=== PATIENT | male | born 1955 | race African-American/Black ===

== ENCOUNTER 2018-07-16 10:02 | Inpatient (IN) | payer MEDICARE, BC ==
[~2018-07-16] VITALS: Ht 182.9 cm; Wt 49.9 kg
[~2018-07-16 10:02] MED LIST: AMLO10TA80 PO; ASPI81TA47 PO; CELL2 PO; CLOP75TA16 PO; CYCL100C PO; CYCL100S4 PO; LABE100T5 PO; LEVE1000 PO; LEVE500T78 PO; PARI1CAP PO; PRAV20TA57 PO; PRED5TAB PO; SODI650T PO; VITA400T9 PO
[2018-07-16 12:21] LABS: HEMATOCRIT. 28.3 % (42.0-52.0); HEMOGLOBIN. 9.3 g/dL (14.0-18.0); MEAN CORPUSCULAR HEMOGLOBIN 30.1 pg (28.0-32.0); MEAN CORPUSCULAR VOLUME 91.3 fL (80.0-94.0); PLATELET 305 x1000/uL (130-400); RED CELL DISTRIBUTION WIDTH 16.7 % (11.6-14.6)
[2018-07-16 12:28] LABS: CHLORIDE 104 mEq/L (98-107)
[2018-07-16 12:35] LABS: ETHANOL BLOOD < 10 mg/dL
[2018-07-16 12:41] LABS: INR 1.1; PROTHROMBIN TIME 10.7 sec (9.1-11.1)
[2018-07-16] MEDS ORDERED: SODIUM CHLORIDE 0.9% 500 ML IV ONE (12:45)
[2018-07-16 13:10] LABS: PLATELET ESTIMATE NORMAL
[2018-07-16] MEDS ORDERED: ACETAMINOPHEN 325MG TABLET PO PRN (14:45)
[2018-07-16] MEDS ORDERED: MAGNESIUM/ALUMINUM HYDROXIDE/SIMETHICONE 30ML UDC PO PRN (14:45)
[2018-07-16] MEDS ORDERED: ACETAMINOPHEN 650MG/20.3ML UDC GT PRN (14:45)
[2018-07-16] MEDS ORDERED: DIPHENHYDRAMINE 50MG/ML VIAL IV PRN (14:45)
[2018-07-16] MEDS ORDERED: NA PHOS,M-B/NA PHOS,DI-BA ENEMA 118ML PR PRN (14:45)
[2018-07-16] MEDS ORDERED: CLONIDINE 0.1MG TABLET PO PRN (14:45)
[2018-07-16] MEDS ORDERED: ONDANSETRON HCL 4MG/2ML INJ IV PRN (14:45)
[2018-07-16] MEDS ORDERED: ACETAMINOPHEN 650MG SUPP PR PRN (14:45)
[2018-07-16] MEDS ORDERED: IPRATROPIUM/ALBUTEROL 0.5-3(2.5)MG/3ML NEB INH PRN (14:45)
[2018-07-16] MEDS: PANTOPRAZOLE SODIUM 40 MG/VIAL IV SCH (15:40)
[2018-07-16 18:43] LABS: CLARITY URINE CLEAR (CLEAR); COLOR URINE YELLOW (YELLOW); KETONES URINE NEGATIVE (NEGATIVE); LEUKOCYTE ESTERASE URINE NEGATIVE (NEGATIVE); NITRITE URINE NEGATIVE (NEGATIVE); OCCULT BLOOD URINE NEGATIVE (NEGATIVE); PH URINE >=9.0 (4.5-8.0); PROTEIN URINE 2+ (NEGATIVE); SPECIFIC GRAVITY URINE 1.011 (1.005-1.030); UROBILINOGEN URINE 0.2 E.U./dL (0.2-1.0)
[2018-07-16 19:32] LABS: *AMPHETAMINES SCREEN URINE NEGATIVE (NEGATIVE); *BARBITURATES SCREEN URINE NEGATIVE (NEGATIVE)
[2018-07-16 19:33] LABS: *BENZODIAZEPINES SCREEN URINE NEGATIVE (NEGATIVE); *COCAINE SCREEN URINE NEGATIVE (NEGATIVE); CANNABINOID URINE SCREEN NEGATIVE (NEGATIVE); METHADONE URINE SCREEN NEGATIVE (NEGATIVE); OPIATES URINE SCREEN NEGATIVE (NEGATIVE); PHENCYCLIDINE URINE SCREEN NEGATIVE (NEGATIVE)
[2018-07-16 20:01] LABS: HEMATOCRIT 25.2 % (42.0-52.0); HEMOGLOBIN 8.1 g/dL (14.0-18.0); MEAN CORPUSCULAR HEMOGLOBIN 30.1 pg (28.0-32.0); PLATELET 249 x1000/uL (130-400); RED CELL DISTRIBUTION WIDTH 16.7 % (11.6-14.6)
[2018-07-16] MEDS: MYCOPHENOLATE MOFETIL 250MG CAPSULE PO SCH (21:02)
[2018-07-16] MEDS: PARICALCITOL 1 MCG CAPSULE PO SCH (21:02)
[2018-07-16] MEDS: PREDNISONE 5MG TABLET PO SCH (21:02)
[2018-07-16] MEDS ORDERED: HYDROCODONE/ACETAMINOPHEN 5/325MG TABLET PO PRN (21:45)
[2018-07-16] MEDS ORDERED: SODIUM CHLORIDE 0.9% INJ 3ML FLUSH IVF SCH (22:00)
[2018-07-16] MEDS ORDERED: CYCLOSPORINE, MODIFIED 100MG CAPSULE PO NR (22:15)
[2018-07-16] MEDS ORDERED: CYCLOSPORINE, MODIFIED 25MG CAPSULE PO NR (22:15)
[2018-07-17 06:33] LABS: BASOPHILS % 0.8 % (0.0-2.0); EOSINOPHILS % 2.5 % (0.0-5.0); LYMPHOCYTES % 10.6 % (20.0-50.0); MEAN CORPUSCULAR HEMOGLOBIN 30.2 pg (28.0-32.0); MEAN CORPUSCULAR VOLUME 90.1 fL (80.0-94.0); MEAN PLATELET VOLUME 7.4 fl (7.4-10.4); MONOCYTES % 12.8 % (2.0-8.0); NEUTROPHILS % 73.3 % (40.0-76.0); PLATELET 255 x1000/uL (130-400); RED BLOOD CELL COUNT 2.11 mill/uL (4.7-6.1); RED CELL DISTRIBUTION WIDTH 16.5 % (11.6-14.6)
[2018-07-17 06:43] LABS: CHLORIDE 103 mEq/L (98-107)
[2018-07-17 06:47] LABS: HEMOGLOBIN. 6.4 g/dL (14.0-18.0)
[2018-07-17 07:24] LABS: HDL CHOLESTEROL 39 mg/dL (40-59); LDL CHOLESTEROL 48 mg/dL (5-100)
[2018-07-17] MEDS ORDERED: DEXTROSE 50% WATER 50ML SYRINGE IV ONE ×2 (07:30→12:00)
[2018-07-17] MEDS ORDERED: INSULIN REGULAR (HUMULIN R) 300UNITS/3ML IV ONE ×2 (07:30→12:00)
[2018-07-17] MEDS ORDERED: SODIUM BICARBONATE 8.4% 1 MEQ/ML 50ML SYR IV ONE ×3 (07:30→12:16)
[2018-07-17] MEDS ORDERED: CALCIUM CHLORIDE 1,000 MG in DEXT 5% WATER 100 ML IV ONE (07:30)
[2018-07-17] MEDS: PANTOPRAZOLE SODIUM 40 MG/VIAL IV SCH (09:00)
[2018-07-17] MEDS: MYCOPHENOLATE MOFETIL 250MG CAPSULE PO SCH ×2 (09:00→17:47)
[2018-07-17] MEDS: PREDNISONE 5MG TABLET PO SCH (09:00)
[2018-07-17] MEDS: PARICALCITOL 1 MCG CAPSULE PO SCH (09:00)
[2018-07-17] MEDS ORDERED: SODIUM POLYSTYRENE SULFONATE 15 G/60 ML BOT PO NR (12:00)
[2018-07-17] MEDS ORDERED: CALCIUM CHLORIDE 1GM/10ML SYR IV ONE (12:19)
[2018-07-17 12:40] VITALS: BP 155/60
[2018-07-17] MEDS: SODIUM CHLORIDE 0.9% INJ 3ML FLUSH IVF SCH ×2 (14:29→21:15)
[2018-07-17 15:52] VITALS: BP 166/76
[2018-07-17] MEDS ORDERED: SORBITOL 70% SOLN 30ML PO NR ×2 (17:35→21:00)
[2018-07-17] MEDS: CYCLOSPORINE, MODIFIED 100MG CAPSULE PO SCH (17:47)
[2018-07-17] MEDS: CYCLOSPORINE, MODIFIED 25MG CAPSULE PO SCH (17:47)
[2018-07-17 19:50] VITALS: BP 158/66
[2018-07-17] MEDS ORDERED: SORBITOL 70% SOLN 30ML PO SCH (21:00)
[2018-07-17 23:40] VITALS: BP 150/64
[2018-07-18] VITALS (7 sets, daily range): BP systolic 141–176; BP diastolic 60–68
[2018-07-18] MEDS: SODIUM CHLORIDE 0.9% INJ 3ML FLUSH IVF SCH ×2 (06:23→14:00)
[2018-07-18 06:59] LABS: HEMOGLOBIN. 7.1 g/dL (14.0-18.0); MEAN CORPUSCULAR HEMOGLOBIN 29.9 pg (28.0-32.0); MEAN CORPUSCULAR VOLUME 88.7 fL (80.0-94.0); MEAN PLATELET VOLUME 7.9 fl (7.4-10.4); PLATELET 253 x1000/uL (130-400); RED BLOOD CELL COUNT 2.36 mill/uL (4.7-6.1); RED CELL DISTRIBUTION WIDTH 17.4 % (11.6-14.6)
[2018-07-18] MEDS: PANTOPRAZOLE SODIUM 40 MG/VIAL IV SCH (08:35)
[2018-07-18] MEDS: PREDNISONE 5MG TABLET PO SCH (08:35)
[2018-07-18] MEDS: MYCOPHENOLATE MOFETIL 250MG CAPSULE PO SCH ×2 (08:35→18:38)
[2018-07-18] MEDS: PARICALCITOL 1 MCG CAPSULE PO SCH (08:35)
[2018-07-18] MEDS ORDERED: CYCLOSPORINE, MODIFIED 100MG CAPSULE PO SCH (09:00)
[2018-07-18] MEDS ORDERED: CYCLOSPORINE, MODIFIED 25MG CAPSULE PO SCH (09:00)
[2018-07-18 10:36] LABS: PLATELET ESTIMATE NORMAL
[2018-07-18 11:21] LABS: T4 FREE 0.92 ng/dL (0.76-1.46)
[2018-07-18] MEDS ORDERED: SIMETHICONE 40 MG/0.6 ML 30ML ONE (14:56)
[2018-07-18] MEDS ORDERED: BACTERIOSTATIC SODIUM CHLORIDE 0.9% 30ML VIAL IJ ONE (14:59)
[2018-07-18] MEDS ORDERED: HYDRALAZINE 20MG/ML VIAL IV NR (17:10)
[2018-07-18] MEDS ORDERED: MIDAZOLAM HCL 5 MG/5 ML VIAL IV PRN (17:12)
[2018-07-18] MEDS ORDERED: MIDAZOLAM HCL 5 MG/5 ML VIAL ONE (17:14)
[2018-07-18] MEDS ORDERED: FENTANYL CITRATE/PF 50MCG/ML 2ML VIAL ONE (17:15)
[2018-07-18] MEDS ORDERED: HYDRALAZINE 20MG/ML VIAL ONE (17:17)
[2018-07-18 18:36] LABS: HEMATOCRIT 24.9 % (42.0-52.0); HEMOGLOBIN 8.5 g/dL (14.0-18.0); MEAN CORPUSCULAR HEMOGLOBIN 30.3 pg (28.0-32.0); MEAN CORPUSCULAR VOLUME 89.3 fL (80.0-94.0); PLATELET 264 x1000/uL (130-400); RED BLOOD CELL COUNT 2.79 mill/uL (4.7-6.1); RED CELL DISTRIBUTION WIDTH 16.7 % (11.6-14.6)
[2018-07-18] MEDS: CYCLOSPORINE, MODIFIED 100MG CAPSULE PO SCH (18:38)
[2018-07-18] MEDS: CYCLOSPORINE, MODIFIED 25MG CAPSULE PO SCH (18:38)
[2018-07-18 18:55] LABS: CREATINE KINASE 76 IU/L (39-308)
[2018-07-18 18:56] LABS: CREATINE KINASE MB FRACTION 1.2 ng/mL (0.5-3.6)
== END 2018-07-18 21:15 | disposition home or self-care (01) | DRG 377 ==
LOC: ER 10:17 → 6WST 13:08 → EDBEDREQ 13:26 → EDBEDREQTM 13:26 → EDBEDREQ 20:59 → EDBEDREQSVC 07-17 06:56 → EDBEDREQTM 07-17 06:56 → EDBEDREQ 07-17 08:18 → EDBEDREQTM 07-17 08:18 → EDBEDREQSVC 07-17 08:18 → ENRESERV 07-17 11:21
PROVIDERS: ADMIT Family Medicine; ATTEND Family Medicine
PROC: 30233N1 Transfusion of Nonautologous Red Blood Cells into Peripheral Vein, Percutaneous Approach (ICD-10-PCS; principal; 2018-07-17)
PROC: 5A1D70Z Performance of Urinary Filtration, Intermittent, Less than 6 Hours Per Day (ICD-10-PCS; 2018-07-17)
PROC: 0DJD8ZZ Inspection of Lower Intestinal Tract, Via Natural or Artificial Opening Endoscopic (ICD-10-PCS; 2018-07-18)
DX: K57.31 Diverticulosis of large intestine without perforation or abscess with bleeding (principal); N18.6 End stage renal disease; I12.0 Hypertensive chronic kidney disease with stage 5 chronic kidney disease or end stage renal disease; E44.0 Moderate protein-calorie malnutrition; I25.811 Atherosclerosis of native coronary artery of transplanted heart without angina pectoris; I42.0 Dilated cardiomyopathy; D62 Acute posthemorrhagic anemia; Z68.1 Body mass index [BMI] 19.9 or less, adult; Q61.3 Polycystic kidney, unspecified; Z94.1 Heart transplant status; Z94.0 Kidney transplant status; E87.5 Hyperkalemia; J44.9 Chronic obstructive pulmonary disease, unspecified; K76.89 Other specified diseases of liver; F17.200 Nicotine dependence, unspecified, uncomplicated; I48.91 Unspecified atrial fibrillation; K29.61 Other gastritis with bleeding; K64.8 Other hemorrhoids; Z88.8 Allergy status to other drugs, medicaments and biological substances; Z99.2 Dependence on renal dialysis; Z86.73 Personal history of transient ischemic attack (TIA), and cerebral infarction without residual deficits; Z79.82 Long term (current) use of aspirin; Z79.899 Other long term (current) drug therapy
CPT/HCPCS: 36415; 71045; 74176; 80048; 80061; 80305; 80320; 82270; 82550; 82553; 83036; 83880; 84439; 84443; 84484; 85027; 85379; 86850; 86900; 86920; 93005; 96361; 96374; 99291; C9113; J0360; J1815; J2250; J3010; J3490; J7040; J7050; J7060; J7502; J7512; J7515; J7517; P9016; G0480

== ENCOUNTER 2019-11-12 09:40 | Inpatient (IN) | payer MEDICARE, BC ==
[~2019-11-12] VITALS: Ht 154.3 cm; Wt 69.4 kg
[~2019-11-12 09:40] MED LIST changes: -CLOP75TA16 PO; +CLOP75TA4 PO; -LEVE500T78 PO; +LEVE500T98 PO
[2019-11-12] MEDS ORDERED: ACETAMINOPHEN 325MG TABLET PO STA (10:03)
[2019-11-12 10:55] LABS: HEMATOCRIT. 33.5 % (42.0-52.0); HEMOGLOBIN. 11.2 g/dL (14.0-18.0); MEAN CORPUSCULAR HEMOGLOBIN 30.6 pg (28.0-32.0); MEAN CORPUSCULAR VOLUME 91.9 fL (80.0-94.0); PLATELET 238 x1000/uL (130-400); RED BLOOD CELL COUNT 3.65 mill/uL (4.7-6.1); RED CELL DISTRIBUTION WIDTH 16.8 % (11.6-14.6)
[2019-11-12 11:01] LABS: CHLORIDE 102 mEq/L (98-107)
[2019-11-12 11:46] LABS: PLATELET ESTIMATE NORMAL
[2019-11-12] MEDS ORDERED: INSULIN REGULAR (HUMULIN R) 300UNITS/3ML IV ONE (12:30)
[2019-11-12] MEDS ORDERED: VANCOMYCIN 1 G PREMIX 200 ML IV ONE (12:30)
[2019-11-12] MEDS ORDERED: SODIUM BICARBONATE 8.4% 1 MEQ/ML 50ML SYR IV ONE (12:30)
[2019-11-12] MEDS ORDERED: DEXTROSE 50% WATER 50ML SYRINGE IV ONE (12:30)
[2019-11-12] MEDS ORDERED: PIPERACILLIN/TAZ 3.375G PREMIX 50 ML IV ONE (12:30)
[2019-11-12] MEDS ORDERED: HYDROCODONE/ACETAMINOPHEN 5/325MG TABLET PO PRN (13:45)
[2019-11-12] MEDS ORDERED: ONDANSETRON HCL 4MG/2ML INJ IV PRN (13:45)
[2019-11-12] MEDS ORDERED: DOCUSATE SODIUM 100MG CAPSULE PO PRN (13:45)
[2019-11-12] MEDS ORDERED: CLONIDINE 0.1MG TABLET PO PRN (13:45)
[2019-11-12] MEDS ORDERED: DIPHENHYDRAMINE 50MG/ML VIAL IV PRN (13:45)
[2019-11-12] MEDS ORDERED: CEFTRIAXONE 1 G PREMIX 50 ML IV SCH (14:00)
[2019-11-12] MEDS ORDERED: CYCLOSPORINE, MODIFIED 25MG CAPSULE PO SCH (14:00)
[2019-11-12] MEDS ORDERED: ENOXAPARIN 40MG/0.4ML SYR SUBCUT SCH (14:00)
[2019-11-12] MEDS: AMLODIPINE 10MG TABLET PO SCH (14:45)
[2019-11-12] MEDS: CLOPIDOGREL 75MG TABLET PO SCH (14:46)
[2019-11-12] MEDS: AZITHROMYCIN 500 MG in DEXT 5% WATER 250 ML IV SCH (14:54)
[2019-11-12] MEDS: PREDNISONE 5MG TABLET PO SCH (15:37)
[2019-11-12] MEDS: PARICALCITOL 1 MCG CAPSULE PO SCH (15:37)
[2019-11-12] MEDS: CYCLOSPORINE, MODIFIED 25MG CAPSULE PO SCH (15:37)
[2019-11-12] MEDS: MYCOPHENOLATE MOFETIL 250MG CAPSULE PO SCH (17:01)
[2019-11-12] MEDS: LABETALOL HCL 100MG TABLET PO SCH (17:02)
[2019-11-12] MEDS ORDERED: PROPOFOL 10MG/ML 100ML 100 ML IV SCH (20:45)
[2019-11-12] MEDS ORDERED: VECURONIUM BROMIDE 10 MG/VIAL IV ONE (20:45)
[2019-11-12] MEDS ORDERED: ETOMIDATE 2MG/ML 10ML VIAL IV ONE (20:45)
[2019-11-12] MEDS ORDERED: NITROGLYCERIN OINT 1GM/INCH UDPKT TD ONE (21:00)
[2019-11-12 23:59] LABS: BG BASE EXCESS -1.4 mmol/L (-2.0-2.0); BG DEOXYHEMOGLOBIN 11.7 % (0.0-5.0); BG FRACTION INSPIRED OXYGEN 100; BG HCO3 ACT 24.1 mmol/L (22.0-26.0); BG METHEMOGLOBIN 0.4 % (0.0-1.5); BG OXYGEN SATURATION 88.1 % (92.0-98.5); BG OXYHEMOGLOBIN 86.9 % (94.0-97.0); BG PCO2 43.4 mmHg (35.0-45.0); BG PH 7.362 (7.350-7.450); BG PO2 63.2 mmHg (75.0-100.0); BG SAMPLE SITE LEFT BRACHIAL; BG TIDAL VOLUME(mL) 500 mL; BG TOTAL HEMOGLOBIN 12.6 g/dL (12.0-18.0); BG VENT MODE VENT - A/C; BG VENT RATE 14 set
[2019-11-13] MEDS ORDERED: CALCIUM GLUCONATE 100MG/ML 10ML VIAL IV ONE
[2019-11-13] MEDS ORDERED: FUROSEMIDE 100MG/10ML VIAL IV NR (02:13)
[2019-11-13] MEDS ORDERED: INSULIN REGULAR (HUMULIN R) 300UNITS/3ML IV NR (02:15)
[2019-11-13] MEDS ORDERED: SODIUM BICARBONATE 8.4% 1 MEQ/ML 50ML SYR IV NR (02:15)
[2019-11-13] MEDS ORDERED: CALCIUM CHLORIDE 1GM/10ML SYR IV NR (02:15)
[2019-11-13] MEDS ORDERED: ALBUTEROL (0.083%) 2.5MG/3ML NEB HHN NR (02:15)
[2019-11-13] MEDS ORDERED: DEXTROSE 50% WATER 50ML SYRINGE IV NR (02:15)
[2019-11-13 04:06] LABS: HEMATOCRIT. 31.3 % (42.0-52.0); HEMOGLOBIN. 10.5 g/dL (14.0-18.0); MEAN CORPUSCULAR HEMOGLOBIN 30.5 pg (28.0-32.0); MEAN CORPUSCULAR VOLUME 91.2 fL (80.0-94.0); MEAN PLATELET VOLUME 8.4 fl (7.4-10.4); PLATELET 214 x1000/uL (130-400); RED BLOOD CELL COUNT 3.43 mill/uL (4.7-6.1); RED CELL DISTRIBUTION WIDTH 16.4 % (11.6-14.6)
[2019-11-13 04:43] LABS: CHLORIDE 99 mEq/L (98-107)
[2019-11-13] MEDS ORDERED: DEXTROSE 50% WATER 50ML SYRINGE IV ONE (05:30)
[2019-11-13] MEDS ORDERED: AMLODIPINE 10MG TABLET PO SCH (09:00)
[2019-11-13 09:53] LABS: PLATELET ESTIMATE NORMAL
[2019-11-13] MEDS ORDERED: DEXT 10%/0.45% NACL 1,000 ML IV SCH (11:00)
[2019-11-13] MEDS ORDERED: DEXT 5%/0.45% NACL 1000ML 1,000 ML IV SCH ×2 (11:00)
[2019-11-13] MEDS: MYCOPHENOLATE MOFETIL 250MG CAPSULE PO SCH ×2 (11:06→17:00)
[2019-11-13] MEDS: CYCLOSPORINE, MODIFIED 100MG CAPSULE PO SCH (11:07)
[2019-11-13] MEDS: ASPIRIN 81MG EC TABLET PO SCH (11:07)
[2019-11-13] MEDS: CYCLOSPORINE, MODIFIED 25MG CAPSULE PO SCH (11:07)
[2019-11-13] MEDS: CLOPIDOGREL 75MG TABLET PO SCH (11:08)
[2019-11-13] MEDS: AMLODIPINE 10MG TABLET PO SCH (11:08)
[2019-11-13] MEDS: PARICALCITOL 1 MCG CAPSULE PO SCH (11:08)
[2019-11-13] MEDS: PREDNISONE 5MG TABLET PO SCH (11:09)
[2019-11-13] MEDS: DEXT 5%/0.45% NACL 1000ML 1,000 ML IV SCH (11:09)
[2019-11-13] MEDS: LABETALOL HCL 100MG TABLET PO SCH ×2 (11:09→17:00)
[2019-11-13] MEDS ORDERED: PIPERACILLIN/TAZOBACTAM 3.375 G in DEXT 5% WATER 100 ML IV SCH (13:45)
[2019-11-13] MEDS ORDERED: PROPOFOL 10MG/ML 100ML 100 ML IV PRN (13:45)
[2019-11-13] MEDS ORDERED: ALBUTEROL 6.7GM HFA INHALER ORI SCH (14:00)
[2019-11-13] MEDS: ENOXAPARIN 30MG/0.3ML SYR SUBCUT SCH (17:10)
[2019-11-13] MEDS: PIPERACILLIN/TAZOBACTAM 2.25 G in DEXTROSE 5% WATER 50 ML IV SCH (17:49)
[2019-11-13] MEDS ORDERED: VANCOMYCIN 1 G PREMIX 200 ML IV SCH (20:00)
[2019-11-14] VITALS (11 sets, daily range): BP systolic 105–196; BP diastolic 54–95
[2019-11-14] MEDS: PIPERACILLIN/TAZOBACTAM 2.25 G in DEXTROSE 5% WATER 50 ML IV SCH ×3 (02:00→20:24)
[2019-11-14] MEDS: CYCLOSPORINE, MODIFIED 100MG CAPSULE PO SCH (11:31)
[2019-11-14] MEDS: MYCOPHENOLATE MOFETIL 250MG CAPSULE PO SCH (11:31)
[2019-11-14] MEDS: ASPIRIN 81MG EC TABLET PO SCH (11:31)
[2019-11-14] MEDS: CYCLOSPORINE, MODIFIED 25MG CAPSULE PO SCH (11:31)
[2019-11-14] MEDS: PREDNISONE 5MG TABLET PO SCH (11:32)
[2019-11-14] MEDS: AMLODIPINE 10MG TABLET PO SCH (11:32)
[2019-11-14] MEDS: CLOPIDOGREL 75MG TABLET PO SCH (11:32)
[2019-11-14] MEDS: LABETALOL HCL 100MG TABLET PO SCH ×2 (11:33→17:00)
[2019-11-14] MEDS: PARICALCITOL 1 MCG CAPSULE PO SCH (11:34)
[2019-11-14] MEDS: DEXT 5%/0.45% NACL 1000ML 1,000 ML IV SCH (11:34)
[2019-11-14] MEDS ORDERED: IPRATROPIUM/ALBUTEROL 0.5-3(2.5)MG/3ML NEB HHN PRN (12:00)
[2019-11-14 12:32] LABS: BG BASE EXCESS -1.7 mmol/L (-2.0-2.0); BG CARBOXYHEMOGLOBIN 0.3 % (0.5-1.5); BG DEOXYHEMOGLOBIN 1.3 % (0.0-5.0); BG FRACTION INSPIRED OXYGEN 100; BG HCO3 ACT 22.6 mmol/L (22.0-26.0); BG METHEMOGLOBIN 0.2 % (0.0-1.5); BG OXYGEN SATURATION 98.7 % (92.0-98.5); BG OXYHEMOGLOBIN 98.2 % (94.0-97.0); BG PCO2 36.6 mmHg (35.0-45.0); BG PH 7.409 (7.350-7.450); BG PO2 205.7 mmHg (75.0-100.0); BG SAMPLE SITE LEFT RADIAL; BG TIDAL VOLUME(mL) 500 mL; BG TOTAL HEMOGLOBIN 10.4 g/dL (12.0-18.0); BG VENT MODE VENT - A/C; BG VENT RATE 14 set
[2019-11-14] MEDS: AZITHROMYCIN 500 MG in DEXT 5% WATER 250 ML IV SCH ×2 (15:00→18:45)
[2019-11-14 15:48] LABS: HEMATOCRIT. 29.3 % (42.0-52.0); HEMOGLOBIN. 10.1 g/dL (14.0-18.0); MEAN CORPUSCULAR HEMOGLOBIN 31.4 pg (28.0-32.0); MEAN CORPUSCULAR VOLUME 90.8 fL (80.0-94.0); MEAN PLATELET VOLUME 8.9 fl (7.4-10.4); PLATELET 155 x1000/uL (130-400); RED BLOOD CELL COUNT 3.23 mill/uL (4.7-6.1); RED CELL DISTRIBUTION WIDTH 16.2 % (11.6-14.6)
[2019-11-14 15:55] LABS: CHLORIDE 100 mEq/L (98-107)
[2019-11-14 17:30] LABS: PLATELET ESTIMATE NORMAL
[2019-11-14] MEDS: MIDAZOLAM HCL 100 MG in DEXT 5% WATER 80 ML IV PRN ×2 (17:50→22:58)
[2019-11-14] MEDS: FENTANYL CITRATE/PF 1,000 MCG in SODIUM CHLORIDE 0.9% 80 ML IV PRN ×2 (17:51→22:57)
[2019-11-14] MEDS: MYCOPHENOLATE MOFETIL 200MG/ML ORAL SUSP NG SCH (18:30)
[2019-11-14] MEDS: IPRATROPIUM/ALBUTEROL 0.5-3(2.5)MG/3ML NEB HHN SCH ×2 (20:10→23:50)
[2019-11-14] MEDS ORDERED: ENALAPRIL 2.5MG/2ML VIAL 2ML IV PRN (22:45)
[2019-11-14] MEDS: HYDRALAZINE 20MG/ML VIAL IV PRN (22:56)
[2019-11-14] MEDS: ACETAMINOPHEN 325MG TABLET PO PRN (22:57)
[2019-11-15] VITALS (88 sets, daily range): BP systolic 77–197; BP diastolic 49–90
[2019-11-15] MEDS ORDERED: PHENYLEPHRINE 40 MG in DEXT 5% WATER 246 ML IV PRN (05:45)
[2019-11-15] MEDS ORDERED: NOREPINEPHRINE 32 MG in DEXT 5% WATER 468 ML IV PRN (05:45)
[2019-11-15] MEDS: PIPERACILLIN/TAZOBACTAM 2.25 G in DEXTROSE 5% WATER 50 ML IV SCH ×3 (06:32→17:13)
[2019-11-15] MEDS: IPRATROPIUM/ALBUTEROL 0.5-3(2.5)MG/3ML NEB HHN SCH ×3 (08:32→20:45)
[2019-11-15 08:54] LABS: HEMATOCRIT. 30.5 % (42.0-52.0); HEMOGLOBIN. 10.4 g/dL (14.0-18.0); MEAN CORPUSCULAR VOLUME 90.8 fL (80.0-94.0); PLATELET 160 x1000/uL (130-400); RED BLOOD CELL COUNT 3.36 mill/uL (4.7-6.1); RED CELL DISTRIBUTION WIDTH 16.1 % (11.6-14.6)
[2019-11-15 08:59] LABS: CHLORIDE 97 mEq/L (98-107)
[2019-11-15 09:11] LABS: PROTHROMBIN TIME 10.1 sec (9.6-11.0)
[2019-11-15] MEDS: PREDNISONE 5MG TABLET PO SCH (09:33)
[2019-11-15] MEDS: AMLODIPINE 10MG TABLET PO SCH (09:34)
[2019-11-15] MEDS: LABETALOL HCL 100MG TABLET PO SCH ×2 (09:34→17:13)
[2019-11-15] MEDS: PARICALCITOL 1 MCG CAPSULE PO SCH (09:34)
[2019-11-15] MEDS: ASPIRIN 81MG TABLET PO SCH (09:34)
[2019-11-15] MEDS: CLOPIDOGREL 75MG TABLET PO SCH (09:34)
[2019-11-15] MEDS: MYCOPHENOLATE MOFETIL 200MG/ML ORAL SUSP NG SCH ×2 (09:35→20:04)
[2019-11-15] MEDS: CYCLOSPORINE MODIFIED PO SCH (09:35)
[2019-11-15] MEDS: ACETAMINOPHEN 325MG TABLET PO PRN ×2 (09:50→22:45)
[2019-11-15 10:51] LABS: PLATELET ESTIMATE NORMAL
[2019-11-15] MEDS: DEXT 5%/0.45% NACL 1000ML 1,000 ML IV SCH (11:50)
[2019-11-15] MEDS: ENOXAPARIN 30MG/0.3ML SYR SUBCUT SCH (14:56)
[2019-11-15] MEDS: AZITHROMYCIN 500 MG in DEXT 5% WATER 250 ML IV SCH (18:13)
[2019-11-15] MEDS: MIDAZOLAM HCL 100 MG in DEXT 5% WATER 80 ML IV PRN (20:04)
[2019-11-15] MEDS: FENTANYL CITRATE/PF 1,000 MCG in SODIUM CHLORIDE 0.9% 80 ML IV PRN (20:05)
[2019-11-15] MEDS: HYDRALAZINE 20MG/ML VIAL IV PRN (22:24)
[2019-11-16] VITALS (92 sets, daily range): BP systolic 86–148; BP diastolic 48–76
[2019-11-16] MEDS: IPRATROPIUM/ALBUTEROL 0.5-3(2.5)MG/3ML NEB HHN SCH ×4 (00:50→21:12)
[2019-11-16] MEDS: PIPERACILLIN/TAZOBACTAM 2.25 G in DEXTROSE 5% WATER 50 ML IV SCH ×3 (02:36→17:40)
[2019-11-16 05:53] LABS: HEMATOCRIT. 23.2 % (42.0-52.0); MEAN PLATELET VOLUME 9.2 fl (7.4-10.4); PLATELET 144 x1000/uL (130-400); RED BLOOD CELL COUNT 2.49 mill/uL (4.7-6.1); RED CELL DISTRIBUTION WIDTH 15.8 % (11.6-14.6)
[2019-11-16] MEDS: ASPIRIN 81MG TABLET PO SCH (08:35)
[2019-11-16] MEDS: CLOPIDOGREL 75MG TABLET PO SCH (08:35)
[2019-11-16] MEDS: PARICALCITOL 1 MCG CAPSULE PO SCH (08:35)
[2019-11-16] MEDS: MYCOPHENOLATE MOFETIL 200MG/ML ORAL SUSP NG SCH ×2 (08:35→17:40)
[2019-11-16] MEDS: PREDNISONE 5MG TABLET PO SCH (08:35)
[2019-11-16] MEDS: PANTOPRAZOLE SODIUM 40 MG/VIAL IV SCH (08:35)
[2019-11-16] MEDS: AMLODIPINE 10MG TABLET PO SCH (08:36)
[2019-11-16] MEDS: LABETALOL HCL 100MG TABLET PO SCH ×2 (08:36→17:00)
[2019-11-16] MEDS: CYCLOSPORINE MODIFIED PO SCH (08:38)
[2019-11-16 09:40] LABS: NUCLEATED RED BLOOD CELLS 1 /100 WBC
[2019-11-16 09:41] LABS: PLATELET ESTIMATE NORMAL
[2019-11-16] MEDS: DEXT 5%/0.45% NACL 1000ML 1,000 ML IV SCH (10:28)
[2019-11-16 10:37] LABS: BG BASE EXCESS -0.7 mmol/L (-2.0-2.0); BG CARBOXYHEMOGLOBIN 2.5 % (0.5-1.5); BG DEOXYHEMOGLOBIN 7.4 % (0.0-5.0); BG FRACTION INSPIRED OXYGEN 50; BG HCO3 ACT 24.3 mmol/L (22.0-26.0); BG METHEMOGLOBIN 0.6 % (0.0-1.5); BG OXYGEN SATURATION 92.4 % (92.0-98.5); BG OXYHEMOGLOBIN 89.5 % (94.0-97.0); BG PCO2 41.4 mmHg (35.0-45.0); BG PH 7.386 (7.350-7.450); BG PO2 71.7 mmHg (75.0-100.0); BG SAMPLE SITE LEFT RADIAL; BG TIDAL VOLUME(mL) 500 mL; BG TOTAL HEMOGLOBIN 7.6 g/dL (12.0-18.0); BG VENT MODE VENT - A/C; BG VENT RATE 14 set
[2019-11-16] MEDS: ENOXAPARIN 30MG/0.3ML SYR SUBCUT SCH (14:00)
[2019-11-16] MEDS: FENTANYL CITRATE/PF 1,000 MCG in SODIUM CHLORIDE 0.9% 80 ML IV PRN (14:51)
[2019-11-16] MEDS ORDERED: AZITHROMYCIN 500 MG in DEXT 5% WATER 250 ML IV SCH (18:00)
[2019-11-17] VITALS (53 sets, daily range): BP systolic 39–214; BP diastolic 25–74
[2019-11-17] MEDS: IPRATROPIUM/ALBUTEROL 0.5-3(2.5)MG/3ML NEB HHN SCH ×2 (01:47→09:20)
[2019-11-17] MEDS: PIPERACILLIN/TAZOBACTAM 2.25 G in DEXTROSE 5% WATER 50 ML IV SCH ×2 (02:13→09:12)
[2019-11-17] MEDS: MIDAZOLAM HCL 100 MG in DEXT 5% WATER 80 ML IV PRN (02:34)
[2019-11-17] MEDS: PANTOPRAZOLE SODIUM 40 MG/VIAL IV SCH (08:22)
[2019-11-17] MEDS: ASPIRIN 81MG TABLET PO SCH (08:22)
[2019-11-17] MEDS: PREDNISONE 5MG TABLET PO SCH (08:22)
[2019-11-17 08:23] LABS: CREATINE KINASE 2234 IU/L (39-308)
[2019-11-17] MEDS: CLOPIDOGREL 75MG TABLET PO SCH (08:23)
[2019-11-17] MEDS: CYCLOSPORINE MODIFIED PO SCH (08:23)
[2019-11-17] MEDS: PARICALCITOL 1 MCG CAPSULE PO SCH (08:23)
[2019-11-17] MEDS: AMLODIPINE 10MG TABLET PO SCH (08:24)
[2019-11-17] MEDS: MYCOPHENOLATE MOFETIL 200MG/ML ORAL SUSP NG SCH (08:24)
[2019-11-17] MEDS: LABETALOL HCL 100MG TABLET PO SCH (08:25)
[2019-11-17 09:42] LABS: BG FRACTION INSPIRED OXYGEN 60; BG HCO3 ACT 13.6 mmol/L (22.0-26.0); BG PCO2 31.2 mmHg (35.0-45.0); BG PH 7.256 (7.350-7.450); BG PO2 157.9 mmHg (75.0-100.0); BG SAMPLE SITE LEFT BRACHIAL; BG TIDAL VOLUME(mL) 500 mL; BG TOTAL HEMOGLOBIN < 4.5 g/dL (12.0-18.0); BG VENT MODE VENT - A/C; BG VENT RATE 14 set
[2019-11-17] MEDS ORDERED: SODIUM BICARBONATE 8.4% 1 MEQ/ML 50ML SYR IV NR (10:00)
[2019-11-17] MEDS ORDERED: EPINEPHRINE 1 MG in SODIUM CHLORIDE 0.9% 249 ML IV PRN (11:00)
[2019-11-17] MEDS ORDERED: DEXTROSE 10% WATER 500 ML IV SCH (11:15)
[2019-11-17 11:23] LABS: MEAN CORPUSCULAR HEMOGLOBIN 31.9 pg (28.0-32.0); MEAN CORPUSCULAR VOLUME 96.2 fL (80.0-94.0); MEAN PLATELET VOLUME 8.9 fl (7.4-10.4); PLATELET 88 x1000/uL (130-400); RED BLOOD CELL COUNT 1.04 mill/uL (4.7-6.1); RED CELL DISTRIBUTION WIDTH 17.1 % (11.6-14.6)
[2019-11-17 11:29] LABS: CHLORIDE 101 mEq/L (98-107)
[2019-11-17 11:33] LABS: HEMOGLOBIN. 3.3 g/dL (14.0-18.0)
[2019-11-17] MEDS ORDERED: METOCLOPRAMIDE HCL 10MG/2ML VIAL IV SCH (12:00)
[2019-11-17 12:30] LABS: NUCLEATED RED BLOOD CELLS 4 /100 WBC; PLATELET ESTIMATE DECREASED
[2019-11-17] MEDS ORDERED: SODIUM POLYSTYRENE SULFONATE 15 G/60 ML BOT NG NR (12:30)
[2019-11-17 13:12] LABS: BG FRACTION INSPIRED OXYGEN 100; BG HCO3 ACT 12.2 mmol/L (22.0-26.0); BG PCO2 34.5 mmHg (35.0-45.0); BG PH 7.166 (7.350-7.450); BG PO2 216.1 mmHg (75.0-100.0); BG SAMPLE SITE RIGHT RADIAL; BG TIDAL VOLUME(mL) 500 mL; BG TOTAL HEMOGLOBIN < 4.5 g/dL (12.0-18.0); BG VENT MODE VENT - A/C; BG VENT RATE 18 set
== END 2019-11-17 13:49 | disposition expired | DRG 870 ==
LOC: ER 09:54 → EDBEDREQ 10:22 → MICUSO 12:58 → EDBEDREQTM 13:04 → EDBEDREQ 13:04 → ENRESERV 11-14 20:40 → CVICU 11-14 21:00
PROVIDERS: ADMIT Hospitalist; ATTEND Hospitalist
PROC: 0BH17EZ Insertion of Endotracheal Airway into Trachea, Via Natural or Artificial Opening (ICD-10-PCS; principal; 2019-11-12)
PROC: 5A1955Z Respiratory Ventilation, Greater than 96 Consecutive Hours (ICD-10-PCS; 2019-11-12)
PROC: 5A09357 Assistance with Respiratory Ventilation, Less than 24 Consecutive Hours, Continuous Positive Airway Pressure (ICD-10-PCS; 2019-11-12)
PROC: 5A1D70Z Performance of Urinary Filtration, Intermittent, Less than 6 Hours Per Day (ICD-10-PCS; 2019-11-13)
PROC: 06HY33Z Insertion of Infusion Device into Lower Vein, Percutaneous Approach (ICD-10-PCS; 2019-11-14)
PROC: 5A1D70Z Performance of Urinary Filtration, Intermittent, Less than 6 Hours Per Day (ICD-10-PCS; 2019-11-15)
PROC: 5A1D70Z Performance of Urinary Filtration, Intermittent, Less than 6 Hours Per Day (ICD-10-PCS; 2019-11-16)
PROC: 5A12012 Performance of Cardiac Output, Single, Manual (ICD-10-PCS; 2019-11-17)
DX: A41.9 Sepsis, unspecified organism (principal); E43 Unspecified severe protein-calorie malnutrition; I50.33 Acute on chronic diastolic (congestive) heart failure; J96.01 Acute respiratory failure with hypoxia; J18.9 Pneumonia, unspecified organism; N18.6 End stage renal disease; I13.2 Hypertensive heart and chronic kidney disease with heart failure and with stage 5 chronic kidney disease, or end stage renal disease; I42.9 Cardiomyopathy, unspecified; Q61.3 Polycystic kidney, unspecified; Z94.0 Kidney transplant status; Z94.3 Heart and lungs transplant status; D64.9 Anemia, unspecified; R65.20 Severe sepsis without septic shock; E87.5 Hyperkalemia; K57.90 Diverticulosis of intestine, part unspecified, without perforation or abscess without bleeding; K52.9 Noninfective gastroenteritis and colitis, unspecified; E78.1 Pure hyperglyceridemia; I73.9 Peripheral vascular disease, unspecified; Z86.73 Personal history of transient ischemic attack (TIA), and cerebral infarction without residual deficits; Z89.512 Acquired absence of left leg below knee; Z88.8 Allergy status to other drugs, medicaments and biological substances; Z99.2 Dependence on renal dialysis; Z79.82 Long term (current) use of aspirin; Z79.899 Other long term (current) drug therapy; Z03.818 Encounter for observation for suspected exposure to other biological agents ruled out; Z68.29 Body mass index [BMI] 29.0-29.9, adult
CPT/HCPCS: 36415; 36600; 71045; 80048; 80053; 80076; 80202; 82375; 82550; 82805; 82962; 83605; 83880; 84443; 84478; 84484; 85025; 87070; 87635; 92950; 93005; 93970; 94002; 94003; 94640; 99291; C9113; J0360; J0456; J0610; J0696; J1650; J1815; J1940; J2250; J2370; J2543; J2704; J3010; J3370; J3490; J7050; J7060; J7502; J7512; J7515; J7517; U0003-CS